=== PATIENT | male | born 1945 | race Caucasian/White ===

== ENCOUNTER 2017-11-02 09:25 | Outpatient (RCR) | payer MEDICARE, OTHER ==
[2014-11-23 13:18] VITALS: BMI 30.2
[2017-05-13 09:03] VITALS: BP 133/81
[~2017-11-02 09:25] MED LIST: ACET500L35 PO; ASPI81TA94 PO; BUPR-149 PO; CARB-1 PO; CEF300 PO; CHOL500011 PO; DIA5 PO; HYDR-2966 PO; LORA-629 PO; MECL25TA9 PO; METO25TA93 PO; NIT4 SL; OMEP-125 PO; SIMV-49 PO; TAMS0.4C70 PO; TEST200V IM
[2017-11-05] MEDS ORDERED: IOPAMIDOL 76% 75 ML INFUS BTL 75 ML ONE (12:35)
== END 2017-11-17 14:28 | disposition home or self-care (01) ==
LOC: ONC 09:25
PROVIDERS: ATTEND Internal Medicine Hematology
DX: R71.8 Other abnormality of red blood cells (principal); D75.1 Secondary polycythemia; D75.0 Familial erythrocytosis
CPT/HCPCS: Q9967

== ENCOUNTER → 2018-03-21 | Outpatient (CLI) | payer MEDICARE, OTHER ==
[2014-11-23 13:18] VITALS: BMI 30.2
--- NOTE | 2018-03-21 17:36 | RT STRESS TEST REPORT ---
FACILITY: [facility] [place] PATIENT NAME: ORALIA SCHULTZ : [id number] MR: [id number] V: [id number] EXAM DATE: ORDERING PHYSICIAN: AVELINO ELLIS TECHNOLOGIST: Marlys Acquisition Time: 2018-03-21 14:18:00 Total Exercise Time: 00:04:35 Test Indications: Screening for CAD Medications: SEE NUCLEAR MED SHEET Protocol: THOMAS 2 Max HR: 169 BPM 114% of Pred: 148 BPM Max BP: 177/098 mmHG Max Work Load: 6.4 METS Images pending Confirmed by NAINA DUVALL ([id number]) on 03/21/2018 5:34:23 PM Referred By: Overread By: NAINA DUVALL
--- NOTE | 2018-03-22 10:43 | RADIOLOGY IMAGING REPORT ---
FACILITY: [facility] [place] PATIENT NAME: Lencho Fraire : 1945 MR: [id number] V: [id number] EXAM DATE: ORDERING PHYSICIAN: AVELINO ELLIS TECHNOLOGIST: Location: [facility] [place] Patient: Lencho Fraire : 1945 Visit/Account:[id number] Date of Sevice: 03/21/2018 EXAMINATION: Single Isotope SPECT Imaging with Exercise and Gated SPECT Imaging DATE OF EXAMINATION: March 21, 2018 DATE OF INTERPRETATION: March 22, 2018 REQUESTING PHYSICIAN: AVELINO ELLIS INDICATION: The patient is a 72-year-old male evaluated for CAD, chest pain, dyspnea. PROCEDURE: After informed consent the patient received an intravenous injection of 12.3 mCi of Tc-9 9m sestamibi followed at the appropriate time interval by rest imaging. The patient then exercised a ccording to the standard [place]ano protocol for 4minutes 35 seconds achieving 6 METS. Resting heart rate was 67 bpm with a peak heart rate of 169 bpm which is over 100% % of maximal predicted heart rate f or age. Blood pressure at rest was 138 / 94; blood pressure during exercise was 177 / 98. There was no chest pain during exercise. Exercise was discontinued because of fatigue. Baseline EKG demonstr ates sinus rhythm with mild nonspecific ST-T abnormality. There were no diagnostic EKG changes of is chemia at peak exercise. Approximately one minute and 30 seconds prior to the termination of exercis e, the patient received an intravenous injection of 30.9 mCi of Tc-99m sestamibi followed by stress i maging. RAW DATA: Examination of the summed raw data revealed a good quality study. MYOCARDIAL PERFUSION: The tomographic images demonstrate probably normal perfusion rest stress and p esteban. There is a very mild focal apical stress defect not seen with stress prone imaging and is like ly attenuation and/or apical thinning. No definite infarct or ischemia is seen. Subjectively there is no transient ischemic dilation. GATED IMAGES: The gated images demonstrate normal regional wall motion and thickening, LVEF 61% IMPRESSION: 1. Negative exercise ECG for angina or ECG changes of ischemia. Fair functional capacity. 2. Probably normal myocardial perfusion scan. No definite areas of infarct or ischemia seen. 3. Normal LV systolic function; LVEF 61%. Report Dictated By: Elmer March MD at 03/22/2018 10:34 AM Report E-Signed By: Elmer March MD at 03/22/2018 10:39 AM WSN:[id number]
== END ==
LOC: NUC 01:53
PROVIDERS: ATTEND Internal Medicine
DX: R94.39 Abnormal result of other cardiovascular function study (principal)
CPT/HCPCS: 78452; 93017; A9500

== ENCOUNTER → 2018-04-07 | Outpatient (CLI) | payer MEDICARE, OTHER ==
[2014-11-23 13:18] VITALS: BMI 30.2
== END ==
LOC: US 00:26
PROVIDERS: ATTEND Internal Medicine
DX: I35.0 Nonrheumatic aortic (valve) stenosis (principal)
CPT/HCPCS: 93306

== ENCOUNTER → 2018-05-05 | Outpatient (CLI) | payer MEDICARE, OTHER ==
[2014-11-23 13:18] VITALS: BMI 30.2
== END ==
LOC: LAB 14:30
PROVIDERS: ATTEND Internal Medicine
DX: I25.709 Atherosclerosis of coronary artery bypass graft(s), unspecified, with unspecified angina pectoris (principal); I35.0 Nonrheumatic aortic (valve) stenosis; I10 Essential (primary) hypertension
CPT/HCPCS: 36415; 85027

== ENCOUNTER 2018-08-29 09:00 | Outpatient (RCR) | payer MEDICARE, OTHER ==
[2014-11-23 13:18] VITALS: BMI 30.2
[2018-06-01 16:18] VITALS: BP_SYST 128; BP_SYST 130; BP_DIAS 74; BP_DIAS 78
--- NOTE | 2018-06-01 16:51 | CARDIAC REHAB PLAN OF CARE ---
Physician: Andrez Calderon MD Patient is being seen: Sylvia Osman Medical Diagnosis: TAVR; CABG x 2 Date of Onset: 05/24/18 (TAVR) Date of Initial Evaluation: 06/01/18 INTERVENTIONS: Due Date: 07/02/18 Patient Assessment: Patient comes to cardiac rehab for his second time. First time with cardiac rehab was in 2002 following CABG x 2. Recently, he had a TAVR on 05/24/18. Prior to his surgery he was reporting shortness of breath and chest pain with exertion. During his exercise session today he reported no symptoms, which he says was amazing. Patient has a history of sleep apnea (on CPAP) at night, HTN, high cholesterol, diastolic heart failure, and PTSD. He shows a little more motivation to join CR following his initial evaluation as appears to be in relatively high spirits and lives a higher quality of life. Exercise Assessment: During his 6-Minute Walk Test, the patient walked for a total of 1475ft for an average speed of 2.8mph. During the test his HR remained elevated above rest, reaching 79-87bpm. While exercising on the treadmill (2.5mph, 1% grade) his HR reached 73-85mph. This increase of 20-30bpm is an appropriate response from his RHR based on him being medicated with metoprolol. This was accompanied by ECG in NSR with exercise and a normal elevation in BP (152/82) during exercise. However, during all exercise bouts the patients SPO2 dropped relatively low (87-90% on average with exertion). The patient does not present with or report any signs/symptoms of low perfusion so we will continue to monitor him closely as he exercises on room air. Exercise Plan: Goals: Our goals by the end of the program will be to encourage the patient to exercise for at least 45 minutes per exercise session at cardiac rehab. These sessions should be performed on average at 4.5+ METs. We also would like to encourage the patient to increase a leisure time activity at home. Exercise Prescription: Mode: Treadmill (first 2 weeks) the patient may start using the upright bike following his groin incisions healing properly. Frequency: 3 days/week (MWF) Duration: 30-45 minutes (first goal in the first month of exercise is to increase exercise duration) Intensity: 3.2-3.8 METs (following duration our next goal will be to increase intensity) Education: Exercise education will be aimed towards teaching the patient how to assess exercise intensity while at home and be aware of signs/symptoms to ensure safety. Exercise Reassessment (Date: ): Exercise Discharge/Follow-Up (Date: ): Nutrition Assessment: Patients is the primary person in charge of diet in the household. The patient could not speak much to what they ate on a regular basis. However, he does say they have tried to incorporate some healthier changes such as increasing their fruit/vegetable intake and focus on lean meats. He does appear to have a decent understanding of current dietary guidelines and is receptive to receiving information related to diet/behavioral changes. Nutrition Plan: Goals: Our primary goal will be to encourage the patient to become more involved with the food planning and preparation at home such as to make him aware of the foods he is consuming. With this we hope to encourage the understanding and appreciation of small dietary changes such as including whole grains, lean meats, and vegetables regularly. Intervention: Intervention will include visual demonstrations and information as the patient learns best this way. Education: Our education will focus on casual conversation with the patient so as to make him responsible for being involved with his food. We will also provide information he can bring home to share with his . Nutrition Reassessment (Date: ): Nutrition Discharge/Follow-Up (Date: ): Psychosocial Assessment: On the Hospital Anxiety and Depression Scale (HADS) the patient scores relatively low (2/21) on both depression and anxiety based questions. This reconfirms the overall perspective we perceived during his evaluation as he seems relatively positive and joyful about life. However, the patient has been diagnosed and is being treated for PTSD following his time spent in the [place]. He does report this has affected his life greatly but the treatment is making things a lot better and that he is improving. However, it will always be an ongoing process. Psychosocial Plan: Goals: Our goals as a cardiac rehab team will be to learn as much as we can as to help the patient progress and support his PTSD. This requires us to ask for information from professionals as well as do our own research on how our regular social contact and regular physical activity can help with this diagnosis. Intervention: Until we uncover more information we will help support the patient as best as we can through social support and positive reinforcement. Education: We will provide education on how exercise can help a multitude of psychosocial conditions as well as provide the patient with information on how he himself is improving so as to increase his motivation to be here and exercise. Psychosocial Reassessment (Date: ): Psychosocial Discharge/Follow-Up (Date: ): Weight Management Assessment: The patient currently weighs 227lbs giving him a BMI above 30putting him in the obese category. He would like to weight under 190lbs but is understanding that this is not achievable in a short period of time. Ideally, he says, he would like to weight under 215 by the end of the program. Losing weight is one of his primary goals through the CR program. Weight Management Plan: Goals: Our goals are to help provide information related to diet and exercise in relation to weight management and particularly weight loss. We will also do our best to facilitate the learning and application processes to help keep him motivation and eagerness. Intervention: The patients goal will be to lose an ideal 5% of his overall body mass. This amounts to approximately 11lbs, which is attainable and realistic. Education: Education will focus on caloric intake vs output as a way of losing weight. We will emphasize the importance of exercise, but also up-play the role that dietary changes can have. Weight Management Reassessment (Date: ): Weight Management Discharge/Follow-Up (Date: ): Physician Signature: Date: MTDD
[2018-06-06 13:19] VITALS: BP_SYST 126; BP_SYST 132; BP_DIAS 70
[2018-06-08 12:58] VITALS: BP 124/68
[2018-06-08 12:59] VITALS: BP 118/60
[2018-06-10 17:37] VITALS: BP 130/68
[2018-06-10 17:38] VITALS: BP 120/68
[2018-06-13 17:17] VITALS: BP 122/70
[2018-06-13 17:18] VITALS: BP 120/68
[2018-06-20 13:25] VITALS: BP 134/74
[2018-06-20 13:26] VITALS: BP 124/70
[2018-06-24 17:56] VITALS: BP_SYST 110; BP_SYST 124; BP_DIAS 64; BP_DIAS 68
[2018-06-27 16:41] VITALS: BP 118/66
[2018-06-27 16:42] VITALS: BP 124/76
[2018-06-29 17:34] VITALS: BP 132/76
[2018-06-29 17:35] VITALS: BP 120/62
[2018-07-01 12:54] VITALS: BP 130/80
[2018-07-01 12:55] VITALS: BP 120/70
[2018-07-04 12:56] VITALS: BP 132/74
[2018-07-04 12:57] VITALS: BP 118/64
[2018-07-06 13:09] VITALS: BP_SYST 108; BP_SYST 128; BP_DIAS 64; BP_DIAS 70
--- NOTE | 2018-07-07 14:41 | CARDIAC REHAB PLAN OF CARE ---
Physician: Andrez Calderon MD Patient is being seen: Sylvia Osman Medical Diagnosis: TAVR; CABG x 2 Date of Onset: 05/24/18 (TAVR) Date of Initial Evaluation: 06/01/18 Date patient was last seen: 07/06/18 Number of treatments: 12 Number of cancellations/No Shows: 3 INTERVENTIONS: Due Date: 08/06/18 Patient Assessment: Patient comes to cardiac rehab for his second time. First time with cardiac rehab was in 2002 following CABG x 2. Recently, he had a TAVR on 05/24/18. Prior to his surgery he was reporting shortness of breath and chest pain with exertion. During his exercise session today he reported no symptoms, which he says was amazing. Patient has a history of sleep apnea (on CPAP) at night, HTN, high cholesterol, diastolic heart failure, and PTSD. He shows a little more motivation to join CR following his initial evaluation as appears to be in relatively high spirits and lives a higher quality of life. Exercise Assessment: During his 6-Minute Walk Test, the patient walked for a total of 1475ft for an average speed of 2.8mph. During the test his HR remained elevated above rest, reaching 79-87bpm. While exercising on the treadmill (2.5mph, 1% grade) his HR reached 73-85mph. This increase of 20-30bpm is an appropriate response from his RHR based on him being medicated with metoprolol. This was accompanied by ECG in NSR with exercise and a normal elevation in BP (152/82) during exercise. However, during all exercise bouts the patients SPO2 dropped relatively low (87-90% on average with exertion). The patient does not present with or report any signs/symptoms of low perfusion so we will continue to monitor him closely as he exercises on room air. Exercise Plan: Goals: Our goals by the end of the program will be to encourage the patient to exercise for at least 45 minutes per exercise session at cardiac rehab. These sessions should be performed on average at 4.5+ METs. We also would like to encourage the patient to increase a leisure time activity at home. Exercise Prescription: Mode: Treadmill (first 2 weeks) the patient may start using the upright bike following his groin incisions healing properly. Frequency: 3 days/week (MWF) Duration: 30-45 minutes (first goal in the first month of exercise is to increase exercise duration) Intensity: 3.2-3.8 METs (following duration our next goal will be to increase intensity) Education: Exercise education will be aimed towards teaching the patient how to assess exercise intensity while at home and be aware of signs/symptoms to ensure safety. Exercise Reassessment (Date: 07/07/18): The patient has been making great progress during his exercise sessions. He has progressed to averaging 45 minutes/session performed at 4.5METs. He has also regularly achieved his THR zone, with average HR reaching 70-85bpm. We want to continue on this progression of the next month. His next exercise goal will be to >5 METs on average, with THR >80bpm. Exercise Discharge/Follow-Up (Date: ): Nutrition Assessment: Patients is the primary person in charge of diet in the household. The patient could not speak much to what they ate on a regular basis. However, he does say they have tried to incorporate some healthier changes such as increasing their fruit/vegetable intake and focus on lean meats. He does appear to have a decent understanding of current dietary guidelines and is receptive to receiving information related to diet/behavioral changes. Nutrition Plan: Goals: Our primary goal will be to encourage the patient to become more involved with the food planning and preparation at home such as to make him aware of the foods he is consuming. With this we hope to encourage the understanding and appreciation of small dietary changes such as including whole grains, lean meats, and vegetables regularly. Intervention: Intervention will include visual demonstrations and information as the patient learns best this way. Education: Our education will focus on casual conversation with the patient so as to make him responsible for being involved with his food. We will also provide information he can bring home to share with his . Nutrition Reassessment (Date: 07/07/18): No updated information to provide. We will follow up with the patient in regards to diet. Since exercise progression is going well, we will now focus our attention to the patients dietary habits. Nutrition Discharge/Follow-Up (Date: ): Psychosocial Assessment: On the Hospital Anxiety and Depression Scale (HADS) the patient scores relatively low (2/21) on both depression and anxiety based questions. This reconfirms the overall perspective we perceived during his evaluation as he seems relatively positive and joyful about life. However, the patient has been diagnosed and is being treated for PTSD following his time spent in the [place]. He does report this has affected his life greatly but the treatment is making things a lot better and that he is improving. However, it will always be an ongoing process. Psychosocial Plan: Goals: Our goals as a cardiac rehab team will be to learn as much as we can as to help the patient progress and support his PTSD. This requires us to ask for information from professionals as well as do our own research on how our regular social contact and regular physical activity can help with this diagnosis. Intervention: Until we uncover more information we will help support the patient as best as we can through social support and positive reinforcement. Education: We will provide education on how exercise can help a multitude of psychosocial conditions as well as provide the patient with information on how he himself is improving so as to increase his motivation to be here and exercise. Psychosocial Reassessment (Date: 07/07/18): The patient appears to be in high spirits at all of his rehab sessions. He reports enjoying the program thus far. He is a full participant in the social dynamic of cardiac rehab as well, which is good for his emotional wellbeing. Psychosocial Discharge/Follow-Up (Date: ): Weight Management Assessment: The patient currently weighs 227lbs giving him a BMI above 30putting him in the obese category. He would like to weight under 190lbs but is understanding that this is not achievable in a short period of time. Ideally, he says, he would like to weight under 215 by the end of the program. Losing weight is one of his primary goals through the CR program. Weight Management Plan: Goals: Our goals are to help provide information related to diet and exercise in relation to weight management and particularly weight loss. We will also do our best to facilitate the learning and application processes to help keep him motivation and eagerness. Intervention: The patients goal will be to lose an ideal 5% of his overall body mass. This amounts to approximately 11lbs, which is attainable and realistic. Education: Education will focus on caloric intake vs output as a way of losing weight. We will emphasize the importance of exercise, but also up-play the role that dietary changes can have. Weight Management Reassessment (Date: 07/07/18): No updated information. We will weigh the patient upon his next attended rehab session and discuss with him where he is towards meeting his weight loss goals. Weight Management Discharge/Follow-Up (Date: ): Physician Signature: Date: MTDD
[2018-07-08 13:42] VITALS: BP 128/68
[2018-07-08 13:43] VITALS: BP 118/68
[2018-07-11 12:58] VITALS: BP_SYST 112; BP_SYST 118; BP_DIAS 62
[2018-07-13 13:46] VITALS: BP 130/74
[2018-07-13 13:47] VITALS: BP 120/76
[2018-07-18 13:10] VITALS: BP 144/88
[2018-07-18 13:12] VITALS: BP 122/68
[2018-07-20 13:12] VITALS: BP_SYST 114; BP_SYST 128; BP_DIAS 70; BP_DIAS 74
[2018-07-22 17:57] VITALS: BP 124/80
[2018-07-22 17:58] VITALS: BP 104/62
[2018-07-25 17:12] VITALS: BP 118/60
[2018-07-25 17:13] VITALS: BP 98/58
[2018-07-29 12:55] VITALS: BP 120/58
[2018-07-29 12:56] VITALS: BP 106/62
--- NOTE | 2018-08-01 13:55 | CARDIAC REHAB PLAN OF CARE ---
Physician: Andrez Calderon MD Patient is being seen: Sylvia Osman Medical Diagnosis: TAVR; CABG x 2 Date of Onset: 05/24/18 (TAVR) Date of Initial Evaluation: 06/01/18 Date patient was last seen: 07/29/18 Number of treatments: 20 Number of cancellations/No Shows: 6 INTERVENTIONS: Due Date: 09/01/17 Patient Assessment: Patient comes to cardiac rehab for his second time. First time with cardiac rehab was in 2002 following CABG x 2. Recently, he had a TAVR on 05/24/18. Prior to his surgery he was reporting shortness of breath and chest pain with exertion. During his exercise session today he reported no symptoms, which he says was amazing. Patient has a history of sleep apnea (on CPAP) at night, HTN, high cholesterol, diastolic heart failure, and PTSD. He shows a little more motivation to join CR following his initial evaluation as appears to be in relatively high spirits and lives a higher quality of life. Exercise Assessment: During his 6-Minute Walk Test, the patient walked for a total of 1475ft for an average speed of 2.8mph. During the test his HR remained elevated above rest, reaching 79-87bpm. While exercising on the treadmill (2.5mph, 1% grade) his HR reached 73-85mph. This increase of 20-30bpm is an appropriate response from his RHR based on him being medicated with metoprolol. This was accompanied by ECG in NSR with exercise and a normal elevation in BP (152/82) during exercise. However, during all exercise bouts the patients SPO2 dropped relatively low (87-90% on average with exertion). The patient does not present with or report any signs/symptoms of low perfusion so we will continue to monitor him closely as he exercises on room air. Exercise Plan: Goals: Our goals by the end of the program will be to encourage the patient to exercise for at least 45 minutes per exercise session at cardiac rehab. These sessions should be performed on average at 4.5+ METs. We also would like to encourage the patient to increase a leisure time activity at home. Exercise Prescription: Mode: Treadmill (first 2 weeks) the patient may start using the upright bike following his groin incisions healing properly. Frequency: 3 days/week (MWF) Duration: 30-45 minutes (first goal in the first month of exercise is to increase exercise duration) Intensity: 3.2-3.8 METs (following duration our next goal will be to increase intensity) Education: Exercise education will be aimed towards teaching the patient how to assess exercise intensity while at home and be aware of signs/symptoms to ensure safety. Exercise Reassessment (Date: 07/07/18): The patient has been making great progress during his exercise sessions. He has progressed to averaging 45 minutes/session performed at 4.5METs. He has also regularly achieved his THR zone, with average HR reaching 70-85bpm. We want to continue on this progression of the next month. His next exercise goal will be to >5 METs on average, with THR >80bpm. Exercise Reassessment (Date: 08/01/18): The patient has been fairly inconsistent this past month with attending his exercise sessions. Due to this, he has not made much progress in his daily sessions. He continues with 40-45 minutes/session with 4.2-4.5 METs on average. He has not increases his incline %. However, one thing to note is his lower HR during his exercise at the same intensity level. With 3.0mph and 3% incline he used to exercise at 74-86bpm and now he is exercising at 68-78bpm. This shows some cardiovascular improvement at submaximal levels. For the next month his goal will be to accomplish the following: Mode: Treadmill at 5.0% incline Intensity: > 4.8 METs THR: >80bpm Exercise Discharge/Follow-Up (Date: ): Nutrition Assessment: Patients is the primary person in charge of diet in the household. The patient could not speak much to what they ate on a regular basis. However, he does say they have tried to incorporate some healthier changes such as increasing their fruit/vegetable intake and focus on lean meats. He does appear to have a decent understanding of current dietary guidelines and is receptive to receiving information related to diet/behavioral changes. Nutrition Plan: Goals: Our primary goal will be to encourage the patient to become more involved with the food planning and preparation at home such as to make him aware of the foods he is consuming. With this we hope to encourage the understanding and appreciation of small dietary changes such as including whole grains, lean meats, and vegetables regularly. Intervention: Intervention will include visual demonstrations and information as the patient learns best this way. Education: Our education will focus on casual conversation with the patient so as to make him responsible for being involved with his food. We will also provide information he can bring home to share with his . Nutrition Reassessment (Date: 07/07/18): No updated information to provide. We will follow up with the patient in regards to diet. Since exercise progression is going well, we will now focus our attention to the patients dietary habits. Nutritional Reassessment (Date: 08/01/18): No updated information. We have asked the patient to set a new years resolution for nutritional goalsit is still TBD Nutrition Discharge/Follow-Up (Date: ): Psychosocial Assessment: On the Hospital Anxiety and Depression Scale (HADS) the patient scores relatively low (2/21) on both depression and anxiety based questions. This reconfirms the overall perspective we perceived during his evaluation as he seems relatively positive and joyful about life. However, the patient has been diagnosed and is being treated for PTSD following his time spent in the [place]. He does report this has affected his life greatly but the treatment is making things a lot better and that he is improving. However, it will always be an ongoing process. Psychosocial Plan: Goals: Our goals as a cardiac rehab team will be to learn as much as we can as to help the patient progress and support his PTSD. This requires us to ask for information from professionals as well as do our own research on how our regular social contact and regular physical activity can help with this diagnosis. Intervention: Until we uncover more information we will help support the patient as best as we can through social support and positive reinforcement. Education: We will provide education on how exercise can help a multitude of psychosocial conditions as well as provide the patient with information on how he himself is improving so as to increase his motivation to be here and exercise. Psychosocial Reassessment (Date: 07/07/18): The patient appears to be in high spirits at all of his rehab sessions. He reports enjoying the program thus far. He is a full participant in the social dynamic of cardiac rehab as well, which is good for his emotional wellbeing. Psychosocial Reassessment (Date: 08/01/18): The patient has had a slight relapse of PTSD related depression this past week. He reports that he goes through phases were it tends to be stronger than other times. He has lacked motivation to come to exercise, which can attribute to his lack of consistent attendance. We have continued to supply him with social support and positive interaction to help combat this, but he states that it usually just takes time. Psychosocial Discharge/Follow-Up (Date: ): Weight Management Assessment: The patient currently weighs 227lbs giving him a BMI above 30putting him in the obese category. He would like to weight under 190lbs but is understanding that this is not achievable in a short period of time. Ideally, he says, he would like to weight under 215 by the end of the program. Losing weight is one of his primary goals through the CR program. Weight Management Plan: Goals: Our goals are to help provide information related to diet and exercise in relation to weight management and particularly weight loss. We will also do our best to facilitate the learning and application processes to help keep him motivation and eagerness. Intervention: The patients goal will be to lose an ideal 5% of his overall body mass. This amounts to approximately 11lbs, which is attainable and realistic. Education: Education will focus on caloric intake vs output as a way of losing weight. We will emphasize the importance of exercise, but also up-play the role that dietary changes can have. Weight Management Reassessment (Date: 07/07/18): No updated information. We will weigh the patient upon his next attended rehab session and discuss with him where he is towards meeting his weight loss goals. Weight Management Reassessment (Date: 08/01/18): As of July the patient weighed 219, showing an 8lb decrease from when he began the program. We hope his nutritional goals will help him in this forward progress. Weight Management Discharge/Follow-Up (Date: ): Physician Signature: Date: JOSED
[2018-08-03 12:49] VITALS: BP_SYST 104; BP_SYST 128; BP_DIAS 62; BP_DIAS 82
[2018-08-05 16:48] VITALS: BP_SYST 102; BP_SYST 122; BP_DIAS 62
[2018-08-08 16:53] VITALS: BP 138/80
[2018-08-08 16:54] VITALS: BP 104/64
[2018-08-17 12:48] VITALS: BP 122/68
[2018-08-17 12:49] VITALS: BP 112/56
[2018-08-24 12:45] VITALS: BP 118/70
[2018-08-24 12:46] VITALS: BP 106/68
[2018-08-26 12:20] VITALS: BP_SYST 116; BP_SYST 140; BP_DIAS 62; BP_DIAS 70
[~2018-08-29 09:00] MED LIST changes: +ACET-2043 PO; +BUPR-136 PO; +CELE100C79 PO; +CHOL10005 PO; +CLOP75TA PO; +FINA5TAB67 PO; +GABA-549 PO; +LIDO5CRE7 TP; +LOSA25TA47 PO; +OXYM15SP61 NS; +SILD100T59 PO; +SIMV-54 PO
[2018-08-29 12:55] VITALS: BP_SYST 110; BP_SYST 128; BP_DIAS 58; BP_DIAS 72
--- NOTE | 2018-08-30 10:59 | CARDIAC REHAB PLAN OF CARE ---
Physician: Andrez Calderon MD Patient is being seen: Sylvia Osman Medical Diagnosis: TAVR; CABG x 2 Date of Onset: 05/24/18 Date of Initial Evaluation: 06/01/18 Date patient was last seen: 08/29/17 Number of treatments: 27 Number of cancellations/No Shows: 10 INTERVENTIONS: Due Date: 09/30/18 Exercise Reassessment (08/30/18): The patient has been much more consistent this previous month in attending his exercise sessions, considering the busy holiday season. While this is a step in the right direction, he has not improved in his targeted intensity parameters. This will be his last month with cardiac rehabhaving 9 more sessions until his 36th. We will aim to have him increase his % incline towards 5% while maintaining the same speed. This will aim to put his MET level above 4.0. Over the course of the next weeks we will also aim to help him develop an exercise program that he can ideally follow when he is discharged from the program. This may include Phase III rehab or it may include an at home exercise program, but it should be something he can maintain and progress with. Nutrition Reassessment (08/30/18): No updated information. As a part of New Years goals we have asked patients to assess their diet and find one thing they can improve on. The current patients targeted nutritional change is still TBD. Psychosocial Reassessment (08/30/18): In reference to the patients recent relapse of PTSD related depression, it appears his affect has significantly improved and is on the mend. His more regular attendance and performance at his rehab sessions are likely correlated to his psychosocial improvement. We will continue to foster a positive social and learning environment for him, to help continue along this positive path. Weight management (08/30/18): No further weight loss recorded from previous reassessment. We will follow up with the patient prior to his discharge to record any additional weight loss. Physician Signature: Date: MTDD
== END 2018-08-30 ==
LOC: CARD 09:00
PROVIDERS: ATTEND Internal Medicine
DX: Z95.1 Presence of aortocoronary bypass graft (principal); Z95.2 Presence of prosthetic heart valve; E78.5 Hyperlipidemia, unspecified; G47.30 Sleep apnea, unspecified; I50.30 Unspecified diastolic (congestive) heart failure; I25.10 Atherosclerotic heart disease of native coronary artery without angina pectoris; Z87.891 Personal history of nicotine dependence
CPT/HCPCS: 93798

== ENCOUNTER 2018-09-21 08:00 | Outpatient (RCR) | payer MEDICARE, OTHER ==
[2014-11-23 13:18] VITALS: BMI 30.2
[2018-08-31 12:12] VITALS: BP_SYST 108; BP_SYST 114; BP_DIAS 52; BP_DIAS 60
[2018-09-02 13:20] VITALS: BP 100/70
[2018-09-02 13:21] VITALS: BP 108/62
[2018-09-05 16:00] VITALS: BP 122/70
[2018-09-05 16:01] VITALS: BP 118/70
[2018-09-07 13:29] VITALS: BP 126/70
[2018-09-07 13:30] VITALS: BP 110/58
[2018-09-09 12:57] VITALS: BP_SYST 108; BP_SYST 122; BP_DIAS 58; BP_DIAS 74
[2018-09-14 13:00] VITALS: BP 124/68
[2018-09-14 13:01] VITALS: BP 112/68
[2018-09-17 11:53] VITALS: BP 120/60
[2018-09-17 11:59] VITALS: BP 94/44
[2018-09-19 16:40] VITALS: BP 118/68
[2018-09-19 16:41] VITALS: BP 110/71
[2018-09-21 12:53] VITALS: BP 124/68
[2018-09-21 12:54] VITALS: BP 118/60
--- NOTE | 2018-09-27 14:07 | CARDIAC REHAB PLAN OF CARE ---
Physician: Andrez Calderon MD Patient is being seen: Sylvia Osman Medical Diagnosis: TAVR; CABG x 2 Date of Onset: 05/24/18 (TAVR) Date of Initial Evaluation: 06/01/18 Date patient was last seen: 09/21/17 Number of treatments: 36 INTERVENTIONS: 09/27/18 Exercise Discharge/Follow-Up (09/27/18): Patient was able to maintain a consistent amount of exercise throughout his 36-visit program. He exercised on average at 4.3METs for approximately 40 minutes/session. This is a significant increase from his initial 3.2 METs on the treadmill. Throughout the program the patient has exhibited ECGs with normal sinus rhythm with few instances of ectopy. His BP had a normal hemodynamic response and his SPO2 remained within normal limits with no SOB. He will continue into the Phase III Program. Nutrition Discharge/Follow-Up (09/27/18): Patient made little to no progress with his diet during his program. He reports not being responsible for what he eats, claiming his does all the cooking and preparation. He did receive lots of informative educational hand outs on how to eat heart healthy. We will continue to provide this education during his Phase III program. Psychosocial Discharge/Follow-Up (09/27/18): Patient has mad significant progress in terms of energy and sleep quality during his time at cardiac rehab, both as he reports improving within the first month. He does report still struggling with incidents of PTSD, but he was able to continue exercising during these down brian spells and he reported it helped keep him active and motivated. Weight Management Discharge/Follow-Up (09/27/18):The patient currently weighs 219lbs, which signifies a 8lb decrease from his intial eval. MTDD
== END 2018-09-21 18:00 | disposition home or self-care (01) ==
LOC: CARD 08:00
PROVIDERS: ATTEND Internal Medicine
DX: Z95.2 Presence of prosthetic heart valve (principal)
CPT/HCPCS: 93798